=== PATIENT | male | born 1950 | race Caucasian/White ===

== ENCOUNTER 2017-02-13 05:47 | Day surgery (SDC) | payer MEDICARE, BC ==
[2017-02-13] MEDS ORDERED: Dextrose 5%-Lactated Ringers 1,000 ML IV SCH (06:00)
[2017-02-13] MEDS ORDERED: Midazolam 1 MG/ML 2 ML SDV ONE (07:24)
[2017-02-13] MEDS ORDERED: fentaNYL 100 MCG/2 ML SDV ONE (07:24)
[2017-02-13] MEDS ORDERED: Propofol 200 MG/20 ML SDV ONE (07:24)
[2017-02-13 09:12] VITALS: BP 138/84
--- NOTE | 2017-02-14 13:23 | OR ---
DATE OF PROCEDURE: 02/13/2017 PREOPERATIVE DIAGNOSIS: History of rectal carcinoma. POSTOPERATIVE DIAGNOSES: 1. Probable granulation tissue at the colorectal anastomosis. 2. Left colonic diverticulosis. OPERATIVE PROCEDURE: Flexible colonoscopy with biopsies of colorectal anastomosis. ANESTHESIA: IV sedation. INDICATION FOR PROCEDURE: This is a 66-year-old and now three years status post presenting with a low rectal carcinoma. The patient underwent a pre and postoperative chemoradiation treatment and a low anterior resection with diverting ileostomy resection. Close in these really without evidence of disease since the time of the surgery. The plan is to proceed with a flexible colonoscopy with biopsies and/or polypectomies over surveillance of possible recurrence or new tumors developing. Potential risks including bleeding and perforation were discussed, and the patient wishes to proceed. DETAILS OF PROCEDURE: The patient was taken to the operating room and placed in a left lateral decubitus position. IV sedation was administered, after which the initial digital rectal exam was performed. The patient had quite a bit in the way of radiation effects in the rectal area but no other palpable masses. The scope was then passed into the rectum. The anastomosis was fairly low. The patient had what appeared to be some granulation tissue along the anastomosis. This was subsequently biopsied. Apart from that, the patient had quite a bit in the way of diverticulosis. There were no other areas of polyp formation or evidence of tumor, and no areas of colitis. After the scope was withdrawn from the cecum, the prep was fairly good. The frond-like tissue at the colorectal anastomosis was biopsied in multiple locations, again this could most likely be some granulation-type tissue rather than recurrent tumor, but the pathology report will obviously be the final determinant. Minimal bleeding from the biopsy site was seen, and the procedure was then concluded. At this point I think, we would recommend repeating colonoscopy in one year assuming that today's exam does not show any evidence of malignancy. Papito Johnson MD /[id number]
== END 2017-02-13 14:15 | disposition home or self-care (01) ==
LOC: JP.SDS 05:47
PROVIDERS: ATTEND Surgery
DX: Z12.11 Encounter for screening for malignant neoplasm of colon (principal); K31.89 Other diseases of stomach and duodenum; K57.30 Diverticulosis of large intestine without perforation or abscess without bleeding; E11.22 Type 2 diabetes mellitus with diabetic chronic kidney disease; N18.3 Chronic kidney disease, stage 3 (moderate); Z79.4 Long term (current) use of insulin
CPT/HCPCS: 45380; 88305; J2250; J2704; J3010; J7042

== ENCOUNTER 2018-02-12 07:45 | Day surgery (SDC) | payer MEDICARE, BC ==
[2018-02-12] MEDS ORDERED: Propofol 200 MG/20 ML SDV ONE (07:49)
[2018-02-12] MEDS ORDERED: fentaNYL 100 MCG/2 ML SDV ONE (07:49)
[2018-02-12] MEDS ORDERED: Midazolam 1 MG/ML 2 ML SDV ONE (07:49)
[2018-02-12] MEDS ORDERED: Dextrose 5%-Lactated Ringers 1,000 ML IV SCH (08:30)
[2018-02-12 11:06] VITALS: BP 140/85
--- NOTE | 2018-02-14 12:58 | OR ---
DATE OF PROCEDURE: 02/12/2018 PREOPERATIVE DIAGNOSIS: History of rectal carcinoma. POSTOPERATIVE DIAGNOSES: 1. History of rectal carcinoma with no evident neoplastic recurrence. 2. Left colonic diverticulosis. OPERATIVE PROCEDURE: Flexible colonoscopy. ANESTHESIA: IV sedation. INDICATION FOR PROCEDURE: A 67-year-old male 4 years status post a low anterior resection for a large rectal carcinoma. The patient had preoperative chemoradiation treatment along with temporary diverting ileostomy. He presents now for a followup colonoscopy with biopsies and/or polypectomy as indicated. Potential risks including bleeding and perforation were discussed, and the patient wishes to proceed. PROCEDURE IN DETAIL: The patient was taken to the operating room and placed in a left lateral decubitus position. IV sedation was administered, after which the initial rectal exam was performed and it was unremarkable. Colonoscope was then passed into the rectum with retroflexion revealing uncomplicated hemorrhoidal columns. Scope was then passed to the level of the cecum. To that level, no other abnormalities were noted other than for some uncomplicated left-sided colonic diverticulosis at the colorectal anastomosis. No stricturing or signs of recurrence were noted and the remainder of the exam was unremarkable as noted above. The prep was quite good. The scope was then withdrawn, the findings reconfirmed, and the procedure concluded. The patient was taken to the recovery room in satisfactory condition. Papito Johnson MD Job #: [id number]
== END 2018-02-12 11:15 | disposition home or self-care (01) ==
LOC: JP.SDS 07:45
PROVIDERS: ATTEND Surgery
DX: Z12.11 Encounter for screening for malignant neoplasm of colon (principal); K57.30 Diverticulosis of large intestine without perforation or abscess without bleeding; Z90.49 Acquired absence of other specified parts of digestive tract; Z85.048 Personal history of other malignant neoplasm of rectum, rectosigmoid junction, and anus; Z92.21 Personal history of antineoplastic chemotherapy; Z92.3 Personal history of irradiation
CPT/HCPCS: G0105; J2250; J2704; J3010; J7042

== ENCOUNTER 2019-01-27 05:25 | Day surgery (SDC) | payer MEDICARE, OTHER ==
[2019-01-27] MEDS ORDERED: Dextrose 5%-Lactated Ringers 1,000 ML IV SCH (06:15)
[2019-01-27] MEDS ORDERED: Midazolam 1 MG/ML 2 ML SDV ONE (07:08)
[2019-01-27] MEDS ORDERED: fentaNYL 100 MCG/2 ML SDV ONE (07:08)
[2019-01-27] MEDS ORDERED: Propofol 200 MG/20 ML SDV ONE (07:08)
[2019-01-27 08:48] VITALS: BP 155/85
--- NOTE | 2019-01-28 14:12 | OR ---
DATE OF PROCEDURE: 01/27/2019 PREOPERATIVE DIAGNOSIS: History of rectal carcinoma. POSTOPERATIVE DIAGNOSES: 1. History of rectal carcinoma with no evidence of recurrence or new neoplastic findings. 2. Uncomplicated left colonic diverticulosis. OPERATIVE PROCEDURE: Flexible colonoscopy. ANESTHESIA: IV sedation. INDICATIONS FOR PROCEDURE: This is a 68-year-old, status post a low anterior resection with ileostomy formation after preoperative chemoradiation treatment for a fairly low rectal carcinoma. He has had no known recurrence of this to date, and he is to undergo a followup colonoscopy for ongoing evaluation. Recent CT scan done in October of this year showed some possible area of the presacral soft tissues, which I suspect as to be an area of sinus tract with that anastomosis, which has remained asymptomatic. The plan is to proceed with flexible colonoscopy with biopsies and/or polypectomy as indicated. Potential risks of the procedure including bleeding and perforation were discussed, and the patient wishes to proceed. DETAILS OF PROCEDURE: The patient was taken to the operating room and placed in a left lateral decubitus position. IV sedation was administered after which the initial digital rectal exam was performed. It was unremarkable apart from the radiation-type changes in the anal sphincter and palpable portion of the rectum making these tissues somewhat thickened and relatively non-elastic. The scope was then passed into the rectum with retroflexion revealing uncomplicated hemorrhoidal columns. The scope was eventually passed to the level of the cecum. The prep was generally quite good with only a small amount of liquid stool present. At the colorectal anastomosis, there were no signs of any mucosal abnormality. The area of the possible sinus tract appeared to be a diverticular-type tract, which otherwise was uninflamed and uncomplicated in appearance. The remaining left colon had some uncomplicated diverticulosis. Apart from that, there was no evidence of any colitis and no polyps or other signs of new neoplasia, i.e., no polyps or other abnormalities in that regard. Scope was then withdrawn, the above findings re-confirmed, and the procedure was concluded. There were no evident complications. The patient was taken to the recovery room in satisfactory condition. The plan will be to repeat the colonoscopy in approximately 2 years. The ultimate timing on this could be offered per Medical Oncology's recommendations that are ongoing. Papito Johnson MD /[id number]
== END 2019-01-27 09:00 | disposition home or self-care (01) ==
LOC: JP.SDS 05:25
PROVIDERS: ATTEND Surgery
DX: Z12.11 Encounter for screening for malignant neoplasm of colon (principal); K57.30 Diverticulosis of large intestine without perforation or abscess without bleeding; K21.9 Gastro-esophageal reflux disease without esophagitis; Z85.048 Personal history of other malignant neoplasm of rectum, rectosigmoid junction, and anus; E11.22 Type 2 diabetes mellitus with diabetic chronic kidney disease; N18.9 Chronic kidney disease, unspecified; Z79.4 Long term (current) use of insulin
CPT/HCPCS: G0105; J2250; J2704; J3010; J7042

== ENCOUNTER 2019-08-03 22:24 | Emergency (ER) | payer BC, MEDICARE ==
[2019-08-03] MEDS ORDERED: Alum Hydrox/Mag Hydrox/Simeth 15 ML, Lidocaine 2% 15 ML PO ONE ×2 (23:17)
[2019-08-03] MEDS ORDERED: Pantoprazole 40 MG Tab.CR PO SCH (23:30)
--- NOTE | 2019-08-03 23:39 | EDM.PDOC ---
ED HPI GENERAL MEDICAL PROBLEM - General Chief Complaint: Gastrointestinal Problem Stated Complaint: FOOD POISONING Time Seen by Provider: 08/03/19 23:10 Source of Information: Reports: Patient History Limitations: Reports: No Limitations - History of Present Illness INITIAL COMMENTS - FREE TEXT/NARRATIVE: 68-year-old with history of GERD presents with concerns of epigastric burning and pain. He reports that symptoms started 4-5 days ago. He has been experiencing a burning sensation below his sternum. It is worse when eating, he does notice some improvement when drinking milk. He also symptoms are more pronounced when he is laying in bed flat at night. To treat this he has been taking large amounts of ibuprofen. Denies any associated dyspnea. The pain is not exertional. He is following his bowel movements, denies any blood or melena. He does have history of similar pain in the past to treat his to his GERD. He has not been taking his omeprazole for unclear reasons. No cough. Upper Epigastric Pain Score (Numeric/FACES): 8 - Related Data Allergies Allergy/AdvReac Type Severity Reaction Status Date / Time No Known Allergies Allergy Verified 08/03/19 22:43 Home Meds: Home Meds traZODone 50 mg PO BEDTIME PRN 04/22/15 [History] Insulin Detemir [Levemir] 8 - 12 unit SQ BEDTIME 04/23/15 [History] Insulin Aspart [NovoLOG] 0 - 8 unit SUBCUT TIDAC PRN 02/18/16 [History] Omeprazole 20 mg PO DAILY 02/09/17 [History] Past Medical History HEENT History: Reports: Impaired Vision Cardiovascular History: Reports: None Respiratory History: Reports: None Gastrointestinal History: Reports: Colon Polyp, Diverticulosis, GERD Genitourinary History: Reports: None Musculoskeletal History: Reports: Gout Neurological History: Reports: None Psychiatric History: Reports: None Endocrine/Metabolic History: Reports: Diabetes, Type II Hematologic History: Reports: None Immunologic History: Reports: None Oncologic (Cancer) History: Reports: Colon Dermatologic History: Reports: None - Infectious Disease History Infectious Disease History: Reports: Chicken Pox - Past Surgical History HEENT Surgical History: Reports: None Cardiovascular Surgical History: Reports: None Respiratory Surgical History: Reports: None GI Surgical History: Reports: Colonoscopy, EGD, Hernia, Inguinal, Small Bowel, Other (See Below) Other GI Surgeries/Procedures: rectal CA Endocrine Surgical History: Reports: None Musculoskeletal Surgical History: Reports: Arthroscopic Procedure Other Musculoskeletal Surgeries/Procedures:: RIGHT SHULDER ARTHROSCOPIC SURGERY Oncologic Surgical History: Reports: Other (See Below) Other Oncologic Surgeries/Procedures: colon surgery Dermatological Surgical History: Reports: None Social & Family History - Family History Family Medical History: Noncontributory - Tobacco Use Smoking Status *Q: Never Smoker Second Hand Smoke Exposure: No - Caffeine Use Caffeine Use: Reports: Coffee, Soda - Recreational Drug Use Recreational Drug Use: No ED ROS GENERAL - Review of Systems Review Of Systems: See Below Constitutional: Reports: No Symptoms HEENT: Reports: No Symptoms Respiratory: Reports: No Symptoms Cardiovascular: Reports: Chest Pain Endocrine: Reports: No Symptoms GI/Abdominal: Reports: No Symptoms. Denies: Melena : Reports: No Symptoms Musculoskeletal: Reports: No Symptoms Skin: Reports: No Symptoms Neurological: Reports: No Symptoms Psychiatric: Reports: No Symptoms Hematologic/Lymphatic: Reports: No Symptoms Immunologic: Reports: No Symptoms ED EXAM, GI/ABD - Physical Exam Exam: See Below Exam Limited By: No Limitations General Appearance: Alert, No Apparent Distress Ears: Normal External Exam Nose: Normal Inspection Throat/Mouth: Normal Inspection Head: Atraumatic, Normocephalic Respiratory/Chest: No Respiratory Distress, Lungs Clear Cardiovascular: Regular Rate, Rhythm GI/Abdominal Exam: Soft, Non-Tender Back Exam: Normal Inspection Extremities: Normal Inspection Neurological: Alert, Oriented Psychiatric: Normal Affect Skin Exam: Warm, Dry Course - Vital Signs Last Recorded V/S: Last Vital Signs Temp 36.5 C 08/04/19 01:43 Pulse 98 08/04/19 01:43 Resp 16 08/04/19 01:43 BP 144/83 H 08/04/19 01:46 Pulse Ox 95 08/04/19 01:43 - Orders/Labs/Meds Orders: Active Orders 24 hr Category Date Time Status Cardiac Monitoring [RC] .As Directed Care 08/04/19 01:00 Active EKG Documentation Completion [RC] ASDIRECTED Care 08/03/19 23:19 Active Heparin Sodium/D5W [Heparin 25,000 Units in D5W 500 ML] Med 08/04/19 01:00 Active 25,000 units in 500 ml IV TITRATE Lactated Ringers @ 100 MLS/HR(1,000ml) Med 08/04/19 02:00 Ordered Lactated Ringers [Ringers, Lactated] 1,000 ml IV ASDIRECTED Pantoprazole [ProTONIX] Med 08/03/19 23:30 Active 40 mg PO DAILY EKG 12 Lead [EK] Routine Ther 08/03/19 23:18 Ordered Medication Orders Heparin Sodium/Dextrose (Heparin 25,000 Units In D5w 500 Ml) 25,000 units in 500 mls @ 21.528 mls/hr IV TITRATE VEGA; Protocol Last Admin: 08/04/19 01:27 Dose: 12 units/kg/hr, 21.528 mls/hr Lactated Ringer's (Ringers, Lactated) 1,000 mls @ 100 mls/hr IV ASDIRECTED VEGA Pantoprazole Sodium (Protonix) 40 mg PO DAILY VEGA Last Admin: 08/03/19 23:31 Dose: 40 mg Labs: Laboratory Tests 08/03/19 08/03/19 Range/Units 23:59 23:59 WBC 9.6 (4.5-11.0) K/uL RBC 5.67 (4.30-5.90) M/uL Hgb 17.2 H D (12.0-15.0) g/dL Hct 51.0 (40.0-54.0) % MCV 90 (80-98) fL MCH 30 (27-31) pg MCHC 34 (32-36) % Plt Count 227 (150-400) K/uL Sodium 139 L (140-148) mmol/L Potassium 3.9 (3.6-5.2) mmol/L Chloride 99 L (100-108) mmol/L Carbon Dioxide 29 (21-32) mmol/L Anion Gap 14.9 H (5.0-14.0) mmol/L BUN 19 H (7-18) mg/dL Creatinine 1.3 (0.8-1.3) mg/dL Est Cr Clr Drug Dosing 52.62 mL/min Estimated GFR (MDRD) 55 L (>60) Glucose 223 H (74-106) mg/dL Calcium 9.2 (8.5-10.1) mg/dL Troponin I 3.180 H* (0.000-0.056) ng/mL Meds: Medications Generic Name Dose Route Start Last Admin Trade Name Freq PRN Reason Stop Dose Admin Heparin Sodium/Dextrose 25,000 units in 500 mls @ 21.528 mls/hr 08/04/19 01: 00 08/04/19 01:27 Heparin 25,000 Units In D5w 500 Ml IV 12 units/kg/hr TITRATE VEGA 21.528 mls/hr Administration Protocol 12 UNITS/KG/HR Lactated Ringer's 1,000 mls @ 100 mls/hr 08/04/19 02:00 Ringers, Lactated IV ASDIRECTED VEGA Pantoprazole Sodium 40 mg 08/03/19 23:30 08/03/19 23:31 Protonix PO 40 mg DAILY VEGA Administration Discontinued Medications Generic Name Dose Route Start Last Admin Trade Name Freq PRN Reason Stop Dose Admin Aspirin 324 mg 08/04/19 00:57 08/04/19 01:07 Aspirin PO 08/04/19 00:58 324 mg ONETIME ONE Administration Clopidogrel Bisulfate 300 mg 08/04/19 01:52 Plavix PO 08/04/19 01:53 ONETIME ONE Al Hydroxide/Mg Hydroxide 15 0 ml 08/03/19 23:17 08/03/19 23:31 ml/ Lidocaine HCl 15 ml PO 08/03/19 23:18 30 ml ONETIME ONE Administration Heparin Sodium (Porcine) 5,000 units 08/04/19 01:06 08/04/19 01:09 Heparin Sodium IVPUSH 08/04/19 01:07 5,000 units ONETIME ONE Administration Metoprolol Tartrate 5 mg 08/04/19 01:52 Lopressor IVPUSH 08/04/19 01:53 ONETIME ONE Nitroglycerin 0.4 mg 08/04/19 00:57 08/04/19 01:46 Nitrostat SL 0.4 mg Q5M PRN Administration Chest Pain - Re-Assessments/Exams Free Text/Narrative Re-Assessment/Exam: 68-year-old gentleman with history of GERD presents to concerns of epigastric pain. Endorses symptoms that are worse with eating, worse with lying flat, likens to previous episodes of acid reflux. He has not been taking an acid suppressant medication and in fact been treating his pain with large amounts of ibuprofen. History and symptoms are strongly consistent with recurrent GERD. I think the likelihood that his chest pain represents ACS, PE, or other emergent pathology is low, we will check a screening EKG. We are administrating a GI cocktail as well as a PPI. he is going to stop taking ibuprofen and use Tylenol for joint related pain. We have discussed starting him on ranitidine tomorrow morning and also re-instituting his PPI. He is going to call his PCP for follow-up. 08/03/19 23:36 Free Text/Narrative Re-Assessment/Exam: EKG shows mild ST elevation in lead 3, there is some depression in V2. No prior for comparison. These are somewhat concerning findings, we're obtaining troponin and basic labs. 08/04/19 00:32 Free Text/Narrative Re-Assessment/Exam: troponin returned elevated at 3.18. Remainder of labs generally unremarkable. Patient continued to endorse substernal burning sensation, administered nitroglycerin with relief of pain. He has been given a full dose chewable aspirin, heparin drip initiated. I have called [facility] multiple times to attempt to arrange transfer for further and NSTEMI cares, we await a call back. 08/04/19 01:38 Received a call back from [facility], discussed case with hospitalist and bed worker. Per their request we are administering Plavix, Lopressor, started IV fluids, and will continue to use nitroglycerin attempted to get the patient chest pain- free, may need nitroglycerin infusion. 08/04/19 01:56 Departure - Departure Time of Disposition: 02:05 Disposition: DC/Tfer to Acute Hospital 02 Clinical Impression: NSTEMI (non-ST elevated myocardial infarction) - Discharge Information Instructions: Heartburn, [id number], Food Choices for Gastroesophageal Reflux Disease, Adult Referrals: Doug Holman Sr, MD [Primary Care Provider] - Forms: ED Department Discharge - My Orders Last 24 Hours: My Active Orders 08/03/19 23:18 EKG 12 Lead [EK] Routine 08/03/19 23:19 EKG Documentation Completion [RC] ASDIRECTED 08/03/19 23:30 Pantoprazole [ProTONIX] 40 mg PO DAILY 08/04/19 01:00 Cardiac Monitoring [RC] .As Directed Heparin Sodium/D5W [Heparin 25,000 Units in D5W 500 ML] 25,000 units in 500 ml IV TITRATE 08/04/19 02:00 Lactated Ringers @ 100 MLS/HR(1,000ml) Lactated Ringers [Ringers, Lactated] 1, 000 ml IV ASDIRECTED - Assessment/Plan Last 24 Hours: My Active Orders 08/03/19 23:18 EKG 12 Lead [EK] Routine 08/03/19 23:19 EKG Documentation Completion [RC] ASDIRECTED 08/03/19 23:30 Pantoprazole [ProTONIX] 40 mg PO DAILY 08/04/19 01:00 Cardiac Monitoring [RC] .As Directed Heparin Sodium/D5W [Heparin 25,000 Units in D5W 500 ML] 25,000 units in 500 ml IV TITRATE 08/04/19 02:00 Lactated Ringers @ 100 MLS/HR(1,000ml) Lactated Ringers [Ringers, Lactated] 1, 000 ml IV ASDIRECTED
[2019-08-04] MEDS ORDERED: Aspirin 81 MG Tab.Chew PO ONE (00:57)
[2019-08-04] MEDS ORDERED: Heparin Sodium/D5W 25,000 UNITS/500 ML BAG IV SCH (01:00)
[2019-08-04] MEDS ORDERED: Heparin Sodium 5,000 Units/ML Vial IVPUSH ONE (01:06)
[2019-08-04] MEDS: Nitroglycerin 0.4 MG Tab.SL SL PRN ×3 (01:08→01:46)
[2019-08-04 01:46] VITALS: BP 144/83
[2019-08-04] MEDS ORDERED: Metoprolol Tartrate 5 MG/5 ML SDV IVPUSH ONE (01:52)
[2019-08-04] MEDS ORDERED: Clopidogrel 75 MG Tab PO ONE (01:52)
[2019-08-04] MEDS ORDERED: Lactated Ringers 1,000 ML IV SCH (02:00)
[2019-08-04 02:08] VITALS: PULSE 109
== END 2019-08-04 02:54 ==
LOC: JP.ED 22:24
DX: I21.4 Non-ST elevation (NSTEMI) myocardial infarction (principal); K21.9 Gastro-esophageal reflux disease without esophagitis; E11.9 Type 2 diabetes mellitus without complications; Z79.899 Other long term (current) drug therapy; Z79.4 Long term (current) use of insulin
CPT/HCPCS: 36415; 80048; 84484; 85027; 93005; 93010; 96365; 96375; 99285; A9270; J1644; J3490; J7120

== ENCOUNTER 2020-05-28 07:32 | Day surgery (SDC) | payer MEDICARE, OTHER ==
[~2020-05-28 07:32] MED LIST: Bacitracin Oint 28.35 GM Tube ONE; Lidocaine 1% with EPINEPHrine 1:100,000 50 ML MDV ONE; Lidocaine/Prilocaine 2.5-2.5% Crm 5 GM Tube ONE; Midazolam 1 MG/ML 2 ML SDV ONE; Mineral Oil 10 ML Bottle ONE; Propofol 200 MG/20 ML SDV ONE; fentaNYL 100 MCG/2 ML SDV ONE
[2020-05-28] MEDS ORDERED: Sodium Chloride 0.9% 1,000 ML IV SCH (08:00)
[2020-05-28] MEDS ORDERED: ceFAZolin 2 GM in Premix Bag 1 BAG IV ONE (08:55)
[2020-05-28] MEDS ORDERED: Propofol 200 MG/20 ML SDV ONE (09:37)
[2020-05-28] MEDS ORDERED: Lidocaine 1% with EPINEPHrine 1:100,000 50 ML MDV ONE (09:42)
[2020-05-28] MEDS ORDERED: fentaNYL 100 MCG/2 ML SDV IVPUSH ONE (10:14)
[2020-05-28] MEDS ORDERED: Morphine 2 MG/ML SYRINGE IVPUSH PRN (10:49)
[2020-05-28] MEDS ORDERED: Acetaminophen/HYDROcodone 325-5 MG Tab PO PRN (10:49)
[2020-05-28 12:31] VITALS: BP 137/89; PULSE 89
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
== END 2020-05-28 12:48 | disposition home or self-care (01) ==
LOC: JP.SDS 07:32
PROVIDERS: ATTEND Surgery
DX: T30.0 Burn of unspecified body region, unspecified degree (principal); G47.33 Obstructive sleep apnea (adult) (pediatric); I25.10 Atherosclerotic heart disease of native coronary artery without angina pectoris; N18.9 Chronic kidney disease, unspecified; Z95.5 Presence of coronary angioplasty implant and graft; Z01.812 Encounter for preprocedural laboratory examination; Z20.828 Contact with and (suspected) exposure to other viral communicable diseases
CPT/HCPCS: 15004; 15100; A9270; J2250; J2704; J3010; J7030; U0002